=== PATIENT | male | born 2000 | race Caucasian/White ===

== ENCOUNTER 2019-04-13 10:20 | Emergency (ER) | payer OTHER ==
[~2019-04-13] VITALS: Ht 180.3 cm; Wt 77.3 kg
[2019-04-13 11:26] VITALS: BP 123/59
== END 2019-04-13 11:58 | disposition home or self-care (01) ==
LOC: EMS 10:22
DX: S93.402A Sprain of unspecified ligament of left ankle, initial encounter (principal); X50.1XXA Overexertion from prolonged static or awkward postures, initial encounter; Y93.89 Activity, other specified; Y92.89 Other specified places as the place of occurrence of the external cause; Y99.8 Other external cause status

== ENCOUNTER 2023-04-20 16:06 | Emergency (ER) | payer OTHER ==
[~2023-04-20] VITALS: Ht 177.8 cm; Wt 95.5 kg
[2023-04-20 16:34] VITALS: TEMP 97.8
[2023-04-20] MEDS ORDERED: AMOX1TAB16 PO (20:25)
[2023-04-20 20:47] VITALS: BP 133/95; PULSE 72; RESP 16
== END 2023-04-20 20:49 | disposition home or self-care (01) ==
LOC: EMS 16:07
DX: S01.01XA Laceration without foreign body of scalp, initial encounter (principal); S41.151A Open bite of right upper arm, initial encounter; Y04.1XXA Assault by human bite, initial encounter; Y93.89 Activity, other specified; Y92.89 Other specified places as the place of occurrence of the external cause; Y99.8 Other external cause status
CPT/HCPCS: 99283